=== PATIENT | female | born 1945 | race Caucasian/White ===

== ENCOUNTER 2016-04-30 01:22 | Day surgery (SDC) | payer MEDICARE ==
[2016-04-30] VITALS (11 sets, daily range): BP systolic 107–146; BP diastolic 66–93; PULSE 61–78; RESP 13–17; O2SAT 92–98
[~2016-04-30] VITALS: Ht 167.6 cm; Wt 73.6 kg
[~2016-04-30 01:22] MED LIST: ASPI-973 PO; ATOR20TA PO; FENO160T14 PO; HYDR25TA4 PO; VARE1TAB22 PO
[2016-04-30] MEDS ORDERED: Heparin 1,000 Unit/1,000mL NS Premix IV ONE (10:03)
[2016-04-30] MEDS ORDERED: Heparin 1,000 Unit/mL 10 mL Inj ONE (10:03)
[2016-04-30] MEDS ORDERED: fentaNYL-PF 50 mCg/mL 2 mL Inj ONE ×2 (10:38→11:45)
--- NOTE | 2016-04-30 15:51 | NUR ---
To CT Pt taken to CT for pelvic imaging, at 1550, in stable condition.
--- NOTE | 2016-04-30 15:58 | DRSVH ---
PROCEDURE: REVASC ILIAC W/ STENT INDICATIONS: BILATERAL ILLIAC STENTS COMPARISON: None. Fluoroscopy time: 12.8 minutes. Technique: 1. Bilateral ultrasound guided retrograde access of the common femoral arteries. 2. Bilateral pelvic arteriogram. 3. Angioplasty of a focal high-grade stenosis within the right common iliac artery. 4. Bilateral common iliac arterial stent placement. 5. Angioplasty of the left common iliac artery. 6. Completion arteriogram. 7. Bilateral sheath removal, bilateral closure device placement, and hemostasis. The indications, alternatives, benefits, risks, and complications of the procedure were explained to the patient.. Informed written consent was obtained and placed in the chart. The patient was phyllis t to the angiography suite, and conscious sedation was administered intravenously by halfway staff, while continuous cardiorespiratory monitoring was performed. Maximum sterile barrier technique was employed per standard protocol, including hand hygiene, cap, ma sk, sterile gown and gloves, and 2% chlorhexidine. Sterile ultrasound probe cover was also utilized. 1% lidocaine was used to anesthetize the skin over the right common femoral artery. Under ultrasoun d guidance, using a micropuncture kit, the right common femoral artery was accessed in retrograde fas hion. An 018 wire was advanced into the inferior abdominal aorta. Multiple attempts were undertaken t o pass a catheter over the 018 wire without success. Balloon dilatation of a focal high-grade stenosi s of the origin of the right common iliac artery was performed first with a 1 mm x 40 mm high-pressur e balloon, next with a 3 mm x 40 mm high-pressure balloon, and lastly with a 4 mm x 40 mm high pressu re balloon. An 035 catheter was then placed over the 018 wire. The 018 wire was exchanged for an 035 J-wire. A pigtail catheter was advanced into the inferior abdominal aorta and bilateral pelvic arteri ogram was performed. Next, 1% lidocaine was used to anesthetize the skin over the left common femoral artery. Under ultras ound guidance using a micropuncture kit, the left common femoral artery was accessed in a retrograde fashion. An 018 wire was advanced into the abdominal aorta. The micropuncture sheath was exchanged fo r a 6 Micronesian sheath. The high-grade stenosis in the origin of the right common femoral artery was then dilated with a 5 mm x 40 mm high-pressure balloon. The 5 Micronesian right common femoral sheath was exchanged for a 7 Micronesian sheath. Next, bilateral balloon expandable iliac stents were deployed simultaneously. The right debi c stent measured 7 mm x 29 mm, and the left iliac stent measured 8 mm x 29 mm. After stent deployment , the distal aspect of the left iliac stent in the proximal aspect of the right iliac stent were dila barney with the associated stent balloons. Completion arteriogram was performed. Arteriogram of the [facility] lower extremity was performed. A Minx closure device was deployed at the right common femoral access and an Angio-Seal closure devic e was deployed at the left common femoral access. FINDINGS: Initial arteriogram demonstrates a near occlusive stenosis at the origin of the right comm on iliac artery. After balloon dilatation up to 5 mm in diameter, there is improved patency of the or igin of the right common iliac artery. The more distal aspect of the right pelvic arteries are widely patent. A moderate grade stenosis is present at the origin of the left common iliac artery secondary to eccen tric atheromatous calcification and plaque. The more distal portions of the left pelvic arteries are widely patent. There are enlarged, ectatic lumbar arteries. Large collaterals are present extending from the right l umbosacral artery. After bilateral stent deployment and post stent balloon expansion, there is wide patency of the origi ns of the bilateral internal arteries. There is no evidence for contrast extravasation or pseudoaneur ysm on AP or bilateral oblique views. Right lower extremity runoff demonstrates wide patency of the right profunda and superficial femoral artery. There is a mild stenotic lesion at the right abductor hiatus. There is three-vessel right low er extremity runoff. IMPRESSION: 1. Status post angioplasty and stenting of a focal near occlusive stenosis at the origin of the right common iliac artery. 2. Status post angioplasty and stenting of a moderate grade stenosis at the origin of left common vineet ac artery. Plan: The patient will begin a 5 month regimen of 75 mg p.o. q. day Plavix. A 300 mg loading dose was admin istered at the time of the study. Dictated by: Kelle Potter M.D. on 04/30/2016 at 15:40 Approved by: Kelle Potter M.D. on 04/30/2016 at 15:56
--- NOTE | 2016-04-30 16:16 | DRSVH ---
PROCEDURE: CT ABDOMEN AND PELVIS WITHOUT CONTRAST ([id number]) INDICATIONS: POST ANGIOGRAM R/O BLEED TECHNIQUE: Noncontrast 5 mm thick sections acquired from the diaphragms to the symphysis. 5 mm coronal and sagi ttal reformats were then performed. For radiation dose reduction, the following was used: automated exposure control, adjustment of mA and/or kV according to patient size. COMPARISON: None. FINDINGS: Image quality: Excellent. ABDOMEN: Lung bases: Lung bases are clear. Heart size is normal. Solid organs: Liver and spleen are normal in size. There is vicarious excretion of contrast within t he gallbladder. Pancreas is normal in contours. There ill-defined bilateral low-density adrenal gland nodule suspicious for bilateral adrenal adenomas. Excreted contrast is present within the bilateral kidneys secondary to recent angiogram. No hydronephrosis. There are bilateral subcentimeter cortical cystic lesions. Peritoneum and bowel: Unenhanced bowel loops demonstrate normal wall thickness and caliber. No free fluid or air. Nodes and vessels: No retroperitoneal or mesenteric adenopathy. Dense atheromatous calcifications are present throughout the abdominal aorta and iliac vessels. There are bilateral proximal common iliac artery stents. No findings to suggest extravasation or pseudoaneurysm at the angioplasty/stenting sit e. There is a small right retroperitoneal hematoma likely at the insertion site of the right common f emoral artery sheath. Mild fasciitis present over the left common femoral artery which likely represe nts lidocaine injected in this region. Miscellaneous: No ventral hernias. PELVIS: Genitourinary: A Benson catheter is present in the bladder is decompressed. Miscellaneous: No inguinal hernias or adenopathy. Bones: No suspicious bony lesions. No vertebral body compression fractures. IMPRESSION: 1. No findings to suggest active extravasation or pseudoaneurysm at the angioplasty/stenting site at the aortic bifurcation. 2. Small right retroperitoneal hematoma. Of note, this was recognized at the time of sheath removal, hemostasis, and closure device deployment. Given the small size, this likely does not represent kalani nued extravasation after hemostasis at the time of the interventional procedure. 3. Probable bilateral adrenal adenomas. Dictated by: Kelle Potter M.D. on 04/30/2016 at 16:08 Approved by: Kelle Potter M.D. on 04/30/2016 at 16:14
[2016-04-30] MEDS ORDERED: CLOP75TA28 PO (16:22)
--- NOTE | 2016-04-30 16:39 | NUR ---
Angioplasty Pt arrived to [facility] at 0855. Admission completed. 2 IVs started without difficulty, as well as pretty catheter. Pt taken to slabbing machine operator at 1025 for Iliac stents. Returned to [facility] at 1330. Vitals stable throughout recovery. Pt on bedrest for 2 hrs. Orthostatics completed per MD orders and CT ordered and completed to r/o bleeding, which was negative. Discharge instructions discussed, w/ daughter present; both voiced understanding. Pretty and IVs d/c'd intact. Pt left [facility] at 1635 in stable condition.
== END 2016-04-30 23:59 | disposition home or self-care (01) ==
LOC: SOUO 01:22
PROVIDERS: ATTEND Radiology Vascular & Interventional Radiology
DX: I70.8 Atherosclerosis of other arteries (principal); E78.5 Hyperlipidemia, unspecified; I10 Essential (primary) hypertension; Z79.82 Long term (current) use of aspirin; F17.210 Nicotine dependence, cigarettes, uncomplicated
CPT/HCPCS: 37221; 74176; 75716; 99152; 99153; C1725; C1760; C1769; C1876; C1887; J1200; J1644; J2250; J3010; Q9967